=== PATIENT | female | born 1985 | race Caucasian/White ===

== ENCOUNTER 2023-05-08 08:46 | Outpatient (OUT) | payer OTHER, SELFPAY | END 2023-05-08 08:47 | disposition home or self-care (01) | PROVIDERS: PCP Family Medicine; Visit Provider Obstetrics & Gynecology | DX: Z01.818 Encounter for other preprocedural examination (principal); R10.2 Pelvic and perineal pain; N83.209 Unspecified ovarian cyst, unspecified side ==

== ENCOUNTER 2023-05-12 08:44 | Day surgery (SDC) | payer OTHER, SELFPAY ==
[2023-05-08 09:44] VITALS: BP 120/83; PULSE 87; RESP 20; TEMP 36.5; O2SAT 98; BMI 28.3
[2023-05-12] VITALS (9 sets, daily range): BP systolic 103–117; BP diastolic 71–79; PULSE 75–108; RESP 10–16; TEMP 35.9–36.2; O2SAT 97–99; BMI 28.3
[2023-05-12 08:51] LABS: Basophils Absolute Auto 0.1 10^3/uL (0.0-0.1); Basophils Percent Auto 1.4 % (0.2-2.0); Eosinophils Absolute Auto 0.2 10^3/uL (0.0-0.7); Eosinophils Percent Auto 3.9 % (0.9-7.0); Hematocrit 41.1 % (36.0-48.0); Hemoglobin 13.3 g/dL (12.0-16.0); Immature Granulocytes Abs Auto 0.01 10^3/uL (0.00-0.03); Immature Granulocytes Pct Auto 0.2 % (0.0-0.5); Lymphocytes Absolute Auto 1.2 10^3/uL (1.2-3.8); Lymphocytes Percent Auto 23.7 % (20.5-60.0); Mean Corpuscular HGB Conc 32.4 g/dL (29.9-35.2); Mean Corpuscular Hemoglobin 29.1 pg (26.7-34.0); Mean Corpuscular Volume 89.9 fL (81.0-99.0); Mean Platelet Volume 9.1 fL (9.5-13.5); Monocytes Absolute Auto 0.4 10^3/uL (0.3-0.8); Monocytes Percent Auto 8.9 % (1.7-12.0); Neutrophils Percent Auto 61.9 % (43.0-75.0); Platelet Count 290 10^3/uL (150-450); Red Blood Count 4.57 10^6/uL (4.20-5.40); Red Cell Distribution Width 13.7 % (11.0-15.0); White Blood Count 4.9 10^3/uL (4.0-11.0)
[2023-05-12] MEDS: LACTATED RINGER'S SOLUTION 1,000 ML 50 ML IV ×2 (09:14→11:49)
--- NOTE | 2023-05-12 11:50 | P.ON_ITS ---
Brief Operative Note Date of procedure: 05/12/23 Pre-op diagnosis: pelvic pain, lt ovarian cyst Post-op diagnosis: same as pre-op Procedure: NAME OF PROCEDURE: diagnostic laparoscopy with removal of partial tube on rt side, lysis of adhesions of bowel from the pelvic side wall on lt side PROCEDURE: The patient was taken back to the Operating Room where she was given general anesthesia without difficulty. She was then prepped and draped in the normal sterile fashion after being placed in a dorsal lithotomy position. A wet sponge stick was placed into the patient's vagina. Attention was then turned to the patient's abdomen, where a scalpel was used to make a small infraumbilical incision. The S retractors were then used to dissect the underlying layers until the fascia could be seen. The fascia was then grasped with Arben clamps and tented up. A knife was then used to make a small incision to the fascia. The muscle was identified, at that time two sutures of #0 Vicryl on a GI needle was then used and placed through the fascia. the peritoneum was then identified and entered bluntly. The 10-4 Ambrose was then placed into the patient's abdomen. This was confirmed with direct visualization of the bowel, using the lapar oscope. The patient's abdomen was then insufflated using approximately 4 liters of CO2 gas. Survey of the patient's abdomen demonstrated normal appearing rt ovary with partial tube noted, absent lt tube, ovary and uterus. A second and third rt and lt lateral ports which were 5 and 8 mm in size, was then placed after the skin incision was made under direct visualization . The patient's tube on the patient's right side was identified and tented up using a grasper, the ligasure apparatus was then used to come across the partial tube along the mesosalpingx to the fimbriated end the tube was then amputated and removed in its entirety. The tube was removed from the patients abdomen. Excellent hemostasis was noted. The lateral ports were then moved under direct visualization with excellent hemostasis. All instruments were removed from the patient's abdomen. The fascia was closed using the #0 Vicryl on GI needle. The skin was closed using 4-0 Vicryl subcuticularly. All instruments were removed from the patient's vagina as well. The patient was taken out of the dorsal lithotomy position and placed in the supine position and taken to recovery in stable condition. Sponge, lap and needle counts were correct x2. lysis of adhesions of bowel from the pelvic side wall Anesthesia: DEEPAK Surgeon: Steven Rayo Anthropology Department Chair: Miladis Cevallos Estimated blood loss (mL): 5 Pathology: none sent (partial tube) Condition: stable Disposition: PACU
== END 2023-05-12 13:50 | disposition home or self-care (01) ==
PROVIDERS: PCP Family Medicine; Visit Provider Obstetrics & Gynecology
PROC: (CPT 58661; principal; 2023-05-12 09:55)
DX: R10.2 Pelvic and perineal pain (principal); N83.202 Unspecified ovarian cyst, left side; N83.8 Other noninflammatory disorders of ovary, fallopian tube and broad ligament; Z79.84 Long term (current) use of oral hypoglycemic drugs; E11.9 Type 2 diabetes mellitus without complications; Z79.85 Long-term (current) use of injectable non-insulin antidiabetic drugs; Z87.891 Personal history of nicotine dependence; Z90.49 Acquired absence of other specified parts of digestive tract; Z90.710 Acquired absence of both cervix and uterus
CPT/HCPCS: 58661; 36415; 85025; 88305; J2704